=== PATIENT | male | born 2000 | race African-American/Black ===

== ENCOUNTER 2022-04-21 08:55 | Emergency (ER) | payer OTHER, SELFPAY ==
[2022-04-21 09:09] VITALS: BP 121/65; PULSE 88; RESP 16; TEMP 37; O2SAT 99
--- NOTE | 2022-04-21 09:43 | ED.GENADULT ---
HPI - General Adult General Chief complaint: Urogenital-Male Stated complaint: std testing / rash Time Seen by Provider: 04/21/22 09:44 Source: patient Mode of arrival: ambulatory Limitations: no limitations History of Present Illness HPI narrative: 21-year-old male presented for complaint rash to the base of scalp, neck, forehead, navel and feet. States this has been present for over one year, and believes he was told it is psoriasis. He also reports similar rash to genitals for only 3 days, stating the penis shaft is swollen with some clear drainage around a painful 'cut.' Endorses recent unprotected sexual activity with 17 people in one week. Denies urethral discharge, dysuria, hematuria, itching. Related Data Allergies Allergy/AdvReac Type Severity Reaction Status Date / Time No Known Allergies Allergy Unknown Unverified 05/24/15 08:18 Review of Systems Review of Systems: CONSTITUTIONAL: Denies body aches, fever, chills, or sweats. EYES: Denies visual changes, redness, or discharge. ENT: Denies rhinorrhea, congestion CARDIOVASCULAR: Denies chest pain, palpitations, or edema. RESPIRATORY: Denies cough or dyspnea. GASTROINTESTINAL: Denies abdominal pain, nausea, vomiting, or diarrhea. SKIN: per HPI MUSCULOSKELETAL: Denies back pain, joint pain, or myalgia. NEUROLOGIC: Denies headache, numbness, tingling, or weakness. [facility], [facility] Past Medical History Medical History (Updated 04/21/22 @ 10:36 by Nara Warren, SANA) No pertinent past medical history Comments At time of signature, I have reviewed and agree with nursing past medical, surgical, social and family history unless otherwise noted. Please see nursing chart for further information. There is no relevant family history pertinent to the presenting complaint Exam Narrative: GENERAL: Well-appearing ENT: Mucous membranes moist. Oropharynx without edema, erythema or lesions. NECK: Supple. No lymphadenopathy CHEST: Clear to auscultation. HEART: Regular rate and rhythm. SKIN: Warm, dry. Severe scaly dry raised erythematous plaque across forehead, posterior neck and scalp base, behind ears, navel, and bilateral toe MTP area 2-5. : thick scaly plaque to suprapubic area and shaft of penis, mild swelling and drainage to left distal aspect with small fissure, no urethral drainage. NEURO: Alert and oriented x3. Course Course Emergency Course: Patient is aware of diagnosis, understands and agrees to treatment plan. Anticipatory guidance given. Patient agrees to follow-up as directed and is aware of reasons to seek care at the emergency department. Portions of this record may have been created with voice recognition software Level of Care: Express Care Visit Vital Signs Vital signs: Vital Signs Temperature 98.6 F 04/21/22 09:09 Pulse Rate 88 04/21/22 09:09 Respiratory Rate 16 04/21/22 09:09 Blood Pressure 121/65 04/21/22 09:09 Pulse Oximetry 99 04/21/22 09:09 Oxygen Delivery Room Air 04/21/22 09:09 Temperature 98.6 F 04/21/22 09:09 Pulse Rate 88 04/21/22 09:09 Respiratory Rate 16 04/21/22 09:09 Blood Pressure 121/65 04/21/22 09:09 Pulse Oximetry 99 04/21/22 09:09 Oxygen Delivery Room Air 04/21/22 09:09 Reviewed Medical Decision Making MDM Narrative Medical decision making narrative: Patient with thick scaly rash to head, navel, feet for one year. This appears c/w rash to genitalia, however patient states this has only been present for 3 days. Given the extent of the plaque and thickness, it is unlikely to be acute. Advised dermatology consultation. Rx triamcinolone. Patient with concern for STD. Urine specimen collected for GC, chlamydia, trich. Informed Pt will be contacted w/ results when they become available if they are positive. Discussed with patient that it takes up to 7 days for results of cultures to be released and explained that we may treat empirically at this time. Agreeable to treatment at th
[2022-04-21] MEDS: cefTRIAXone 500 MG, LIDOCAINE HCL 1% LOCAL INJ 1 ML IM (10:30)
--- NOTE | 2022-04-25 12:19 | PC.NURSE ---
1213 called and msg left. no call over the [employer] targeting supervisor list. had to get information from chart.
--- NOTE | 2022-04-25 16:26 | PC.NURSE ---
DID CALL BACK AND AWARE OF TEST RESULTS FOR GC/CHLAM AND TRICH, ALL NOT DETECTED.
== END 2022-04-21 09:44 | disposition home or self-care (01) ==
PROVIDERS: Emergency Provider Nurse Practitioner Family
DX: L30.9 Dermatitis, unspecified (principal); Z11.3 Encounter for screening for infections with a predominantly sexual mode of transmission
CPT/HCPCS: 87491; 87591; 87661; 99213; G0463; J0696